=== PATIENT | male | born 1975 | race Caucasian/White ===

== ENCOUNTER 2019-05-14 18:13 | Emergency (ER) | payer MEDICAID, SELFPAY ==
[2019-05-14 18:14] VITALS: BP 142/98; PULSE 73; RESP 16; TEMP 36.7; O2SAT 99; BMI 35.6
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
--- NOTE | 2019-05-14 18:46 | ED.DEP ---
ED Disposition - Plan for ED Patient: Instructions: Dental Trauma Prescriptions: Amoxicillin 500 mg PO TID #30 tab Prescription Printed Hydrocodone Bitart/Apap 5-325 [[place] 5MG-325MG] 1 tab PO Q4H PRN PRN 2 Days #14 tab PRN Reason: Pain Prescription Printed Additional Instructions: see your dentist in 3 days
== END 2019-05-14 18:54 | disposition home or self-care (01) ==
LOC: ED 18:54
PROVIDERS: Emergency Provider Emergency Medicine
DX: K08.89 Other specified disorders of teeth and supporting structures (principal); S02.5XXA Fracture of tooth (traumatic), initial encounter for closed fracture; W20.8XXA Other cause of strike by thrown, projected or falling object, initial encounter; Y93.I9 Activity, other involving external motion; Y92.89 Other specified places as the place of occurrence of the external cause; Y99.8 Other external cause status
CPT/HCPCS: 99282